=== PATIENT | female | born 1980 | race African-American/Black ===

== ENCOUNTER 2017-02-17 20:10 | Emergency (ER) | payer MEDICARE, MEDICAID ==
[2017-02-17] MEDS ORDERED: CLINDAMYCIN PHOSPHATE INJ 300 MG/2 ML SDV IM ONE (22:44)
[2017-02-17] MEDS ORDERED: HYDROCODONE/ACETAMINOPHEN 5-325 MG TABLET PO ONE (22:45)
[2017-02-17] MEDS ORDERED: DEXAMETHASONE SOD PHOS INJ 10 MG/1 ML VIAL IV ONE (22:45)
--- NOTE | 2017-02-17 23:26 | ER Document Report ---
ED General - General Chief Complaint: Facial Swelling Stated Complaint: LEFT SIDE OF FACE SWOLLEN Time Seen by Provider: 02/17/17 22:17 Mode of Arrival: Ambulatory Information source: Patient, Relative Notes: Patient is a 36-year-old morbidly obese black female comes emergency room with a 3 day onset of left facial swelling. Patient states she has a history of bad teeth and this is developed over the past 48 hours to wear the left side of her face is swollen and tender. Patient denies any difficulty in swallowing and or breathing. She is achy on her body. TRAVEL OUTSIDE OF THE [place] IN LAST 30 DAYS: No - Related Data Allergies/Adverse Reactions: No Known Allergies Allergy (Unverified 08/26/13 19:22) Past Medical History - Social History Family History: Reviewed & Not Pertinent Patient has suicidal ideation: No Patient has homicidal ideation: No - Past Medical History Cardiac Medical History: Reports: Hx DVT, Hx Hypertension, Hx Pulmonary Embolism Neurological Medical History: Reports: Hx Seizures Renal/ Medical History: Denies: Hx Peritoneal Dialysis Past Surgical History: Reports: Hx Section - x2, Hx Orthopedic Surgery - left wrist and bilateral hips, Hx Tubal Ligation - Immunizations Hx Diphtheria, Pertussis, Tetanus Vaccination: Yes Physical Exam - Vital signs Vitals: Temp Pulse Resp BP Pulse Ox 97.5 F 86 20 139/86 H 95 02/17/17 20:28 02/17/17 20:28 02/17/17 20:28 02/17/17 20:28 02/17/17 20:28 Course - Vital Signs Vital signs: Temp Pulse Resp BP Pulse Ox 97.5 F 86 20 139/86 H 95 02/17/17 20:28 02/17/17 20:28 02/17/17 20:28 02/17/17 20:28 02/17/17 20:28 Discharge - Discharge Clinical Impression: Dental abscess Condition: Stable Disposition: HOME, SELF-CARE Instructions: Abscess ([facility]), Oral Narcotic Medication ([facility]) Additional Instructions: Home and rest. I have written you for an antibiotic please take it until it is gone. Also written for some pain medication again take until as you needed. May also add ibuprofen 800 mg 3 times a day with food. Keep your appointment with your dentist as you have indicated to me for next week. Should you have any increase in pain swelling discomfort increase headache fever return to ER once for a reevaluation. Prescriptions: Clindamycin HCl [Cleocin HCl] 300 mg PO QID #40 capsule Hydrocodone/Acetaminophen [[place] 7.5-325 mg Tablet] 1 tab PO QID PRN #15 tablet PRN Reason: For Pain Forms: Elevated Blood Pressure
[2017-02-17 23:52] VITALS: BP 146/75
== END 2017-02-17 23:45 | disposition home or self-care (01) ==
LOC: ER 20:10
DX: K04.7 Periapical abscess without sinus (principal); E66.01 Morbid (severe) obesity due to excess calories; I10 Essential (primary) hypertension; Z86.718 Personal history of other venous thrombosis and embolism; Z86.711 Personal history of pulmonary embolism; Z98.51 Tubal ligation status
CPT/HCPCS: 99283; 96372; 96374; J1100; A9270

== ENCOUNTER 2017-08-10 20:50 | Emergency (ER) | payer MEDICARE, MEDICAID ==
[2017-08-10 21:01] LABS: ABSOLUTE EOSINOPHILS # (AUTO) 0.3 10^3/uL (0.0-0.6); ABSOLUTE LYMPHOCYTES (AUTO) 1.9 10^3/uL (0.5-4.7); ABSOLUTE MONOCYTES (AUTO) 0.5 10^3/uL (0.1-1.4); ABSOLUTE NEUT (AUTO) 7.6 10^3/uL (1.7-8.2); BASOPHILS % (AUTO) 0.4 % (0-2); EOSINOPHILS % (AUTO) 2.7 % (0-6); HEMATOCRIT 38.1 % (36.0-47.0); HEMOGLOBIN 12.2 g/dL (12.0-15.5); LYMPHOCYTES % (AUTO) 18.2 % (13-45); MEAN CORPUSCULAR HEMOGLOBIN 22.8 pg (27.0-33.4); MEAN CORPUSCULAR HGB CONC 31.9 g/dL (32.0-36.0); MEAN CORPUSCULAR VOLUME 72 fl (80-97); MONOCYTES % (AUTO) 5.2 % (3-13); PLATELET COUNT 417 10^3/uL (150-450); RED BLOOD COUNT 5.33 10^6/uL (3.72-5.28); RED CELL DISTRIBUTION WIDTH 20.5 % (11.5-14.0); SEGMENTED NEUTROPHILS % (AUTO) 73.5 % (42-78); TOTAL CELLS COUNTED % (AUTO) 100 %; WHITE BLOOD COUNT 10.3 10^3/uL (4.0-10.5)
[2017-08-10 21:17] LABS: ALANINE AMINOTRANSFERASE 20 U/L (9-52); ALBUMIN 4.3 g/dL (3.5-5.0); ALKALINE PHOSPHATASE 92 U/L (38-126); ANION GAP 10 (5-19); ASPARTATE AMINO TRANSFERASE 13 U/L (14-36); BILIRUBIN,DIRECT 0.3 mg/dL (0.0-0.4); BILIRUBIN,TOTAL 0.4 mg/dL (0.2-1.3); BLOOD UREA NITROGEN 12 mg/dL (7-20); CALCIUM 9.5 mg/dL (8.4-10.2); CARBON DIOXIDE 29 mmol/L (22-30); CHLORIDE 100 mmol/L (98-107); CREATINE KINASE 77 U/L (30-135); GLUCOSE 146 mg/dL (75-110); SODIUM 139.2 mmol/L (137-145); TOTAL PROTEIN 8.3 g/dL (6.3-8.2)
[2017-08-10] MEDS ORDERED: ONDANSETRON HCL INJ/PF 4 MG/2 ML SDV IV ONE (21:28)
[2017-08-10] MEDS ORDERED: MORPHINE SULFATE 10 MG/ML INJ IV ONE (21:29)
[2017-08-10] MEDS ORDERED: NORMAL SALINE 1000 ML 1,000 ML IV ONE (21:29)
--- NOTE | 2017-08-10 21:31 | ER Document Report ---
ED General - General Chief Complaint: Chest Pain Stated Complaint: CHEST PAIN Time Seen by Provider: 08/10/17 21:17 Notes: Patient is a 37-year-old female with a past medical history of morbid obesity, PE, hypertension, seizure disorder, and chronic pain on Percocet that comes emergency department for chief complaint of "pain under the ribs" that started just before dinner, she states that she felt a burning sensation, she took Pepcid and symptoms improved, she went in to eat at a buffet, she states she ate some, felt worse and vomited, she tried eating more and then vomited again, she states she did this 4 times. She comes by EMS, she was given nitroglycerin SL, aspirin 324 mg. She still reports discomfort and some nausea. She denies fever or chills. She is on Eliquis, she has been on this for 2 years without blood clots. She denies history of AR, does have family history of AR (father). TRAVEL OUTSIDE OF THE [place] IN LAST 30 DAYS: No - Related Data Allergies/Adverse Reactions: No Known Allergies Allergy (Unverified 08/26/13 19:22) Past Medical History - General Information source: Patient - Social History Smoking Status: Never Smoker Frequency of alcohol use: None Drug Abuse: None Lives with: Family Family History: Reviewed & Not Pertinent - Past Medical History Cardiac Medical History: Reports: Hx DVT, Hx Hypertension, Hx Pulmonary Embolism Neurological Medical History: Reports: Hx Seizures Renal/ Medical History: Denies: Hx Peritoneal Dialysis Past Surgical History: Reports: Hx Section - x2, Hx Orthopedic Surgery - left wrist and bilateral hips, Hx Tubal Ligation - Immunizations Hx Diphtheria, Pertussis, Tetanus Vaccination: Yes Review of Systems - Review of Systems Constitutional: No symptoms reported EENT: No symptoms reported Cardiovascular: See HPI Respiratory: No symptoms reported Gastrointestinal: See HPI Genitourinary: No symptoms reported Female Genitourinary: No symptoms reported Musculoskeletal: No symptoms reported Skin: No symptoms reported Hematologic/Lymphatic: No symptoms reported Neurological/Psychological: No symptoms reported Physical Exam - Vital signs Vitals: Resp 11 L 08/10/17 21:10 - General General appearance: Appears well In distress: None - HEENT Head: Normocephalic, Atraumatic Eyes: Normal Eyelashes: Normal Pupils: PERRL Mucous membranes: Dry Pharynx: Normal Neck: Normal. No: Anterior cervical chain, Posterior cervical chain - Respiratory Respiratory status: No respiratory distress. No: Respiratory distress, Labored , Tachypnea Chest status: Nontender Breath sounds: Normal. No: Decreased air movement, Wheezing - Cardiovascular Rhythm: Regular. No: Tachycardia Heart sounds: Normal auscultation, S1 appreciated, S2 appreciated - Abdominal Inspection: Normal Tenderness: Tender - There is mild upper abdominal tenderness generally, nonspecific, no guarding, no lower abdominal tenderness - Back Back: Normal, Nontender. No: Tender - Extremities General upper extremity: Normal inspection, Nontender, Normal ROM, Normal strength General lower extremity: Other - Some chronic swelling with minimal pitting noted, no erythema, normal distal pulses and sensation, unremarkable otherwise - Neurological Neuro grossly intact: Yes Cognition: Normal Orientation: AAOx4 [place] Coma Scale Eye Opening: Spontaneous [place] Coma Scale Verbal: Oriented [place] Coma Scale Motor: Obeys Commands [place] Coma Scale Total: 15 Speech: Normal Cranial nerves: Normal Cerebellar coordination: Normal Motor strength normal: LUE, RUE, LLE, RLE Additional motor exam normals: Equal medical assembler Sensory: Normal - Skin Skin Temperature: Warm Skin Moisture: Dry Skin Color: Normal Course - Re-evaluation Re-evalutation: Patient does have some epigastric pain on examination, reporting burning in her upper abdomen and vomiting. Initial tachycardia resolved with IV fluids, no shortness of breath, no suspicion of pulmonary embolism. Patient is on Eliquis. CBC unremarkable, chemistry unremarkable including LFTs, bilirubin, lipase unremarkable. Ultrasound performed, shows questionable minimal sludge, incidental finding of abnormality on the kidney which needs further evaluation for potential mass. EKG sinus tachycardia with no T-wave inversions or ST segment changes in consecutive leads. Chest x-ray is unremarkable. Troponin negative, cycled again and was negative. Patient remained asymptomatic after medications, tolerating fluids and pills by mouth without any difficulty, she denies any repeat symptoms. Patient states she has had peptic ulcers in the past, had endoscopy and colonoscopy years ago. Appears to be gastrointestinal in source, negative workup otherwise. Discussed treatment, follow-up, discussed close follow-up for evaluation of abnormality on right kidney, discussed return precautions in detail. Patient and significant other state understanding and agreement. - Vital Signs Vital signs: Temp Pulse Resp BP Pulse Ox 20 107/82 97 08/11/17 02:01 08/11/17 02:01 08/11/17 02:01 - Laboratory Result Diagrams: 08/10/17 20:34 08/10/17 20:34 Laboratory results interpreted by me: 08/10/17 08/10/17 20:34 20:34 RBC 5.33 H MCV 72 L MCH 22.8 L MCHC 31.9 L RDW 20.5 H Glucose 146 H AST 13 L Total Protein 8.3 H Discharge - Discharge Clinical Impression: Epigastric pain Chest pain Qualifiers: Chest pain type: unspecified Qualified Code(s): R07.9 - Chest pain, unspecified Vomiting Qualifiers: Vomiting type: unspecified Vomiting Intractability: non-intractable Nausea presence: with nausea Qualified Code(s): R11.2 - Nausea with vomiting, unspecified Condition: Stable Disposition: HOME, SELF-CARE Additional Instructions: The evaluation of your gallbladder does not show any concerning abnormalities, your heart workup at this time is normal, your workup and symptoms are most suggestive of a gastrointestinal source. I suspect he had esophagitis/ gastritis. Take the Nexium and Carafate as prescribed, follow-up with your primary care for additional evaluation and management of this. Your ultrasound also shows an incidental finding on your right kidney which needs to be evaluated with either CAT scan or MRI by your provider. Do not delay because this could end up being cancer that would need to be addressed. Return if you worsen including severe pain, returned vomiting, vomiting blood, black stools, or any other concerning or worsening symptoms. Prescriptions: Esomeprazole Mag Trihydrate [Nexium] 40 mg PO DAILY #30 capsule. Sucralfate [Carafate 1 gm Tablet] 1 gm PO QID #40 tablet Forms: Treatment of Relative/Child Referrals: YESSENIA DILLON FNP [Primary Care Provider] - Follow up as needed
[2017-08-10 21:37] LABS: CREATINE KINASE MB < 0.22 ng/mL (<4.55); TROPONIN I < 0.012 ng/mL
[2017-08-10 21:38] LABS: INTERNATIONAL RATION (INR) 1.07; PROTHROMBIN TIME 14.7 SEC (11.4-15.4)
--- NOTE | 2017-08-10 22:39 | RADIOLOGY REPORT (SQ) ---
EXAM DESCRIPTION: CHEST SINGLE VIEW COMPLETED DATE/TIME: 08/10/2017 9:18 pm REASON FOR STUDY: chest pain COMPARISON: 09/09/2014 EXAM PARAMETERS: NUMBER OF VIEWS: One view. TECHNIQUE: Single frontal radiographic view of the chest acquired. RADIATION DOSE: NA LIMITATIONS: None. FINDINGS: LUNGS AND PLEURA: No opacities, masses or pneumothorax. No pleural effusion. MEDIASTINUM AND HILAR STRUCTURES: No masses. Contour normal. HEART AND VASCULAR STRUCTURES: Heart normal in size. Normal vasculature. BONES: No acute findings. HARDWARE: None in the chest. OTHER: No other significant finding. IMPRESSION: NO ACUTE RADIOGRAPHIC FINDING IN THE CHEST. TECHNICAL DOCUMENTATION: JOB ID: [id number] [employer]- All Rights Reserved Reading location - IP/workstation name: [email or web address]
--- NOTE | 2017-08-11 02:03 | RADIOLOGY REPORT (SQ) ---
EXAM DESCRIPTION: U/S ABDOMEN LIMITED W/O DOP CLINICAL HISTORY: 37 years, Female, RUQ and epigastric pain, vomiting COMPARISON: None. TECHNIQUE: Transabdominal LIMITATIONS: None. FINDINGS: Moderate hepatic steatosis with nonspecific diffuse heterogeneity. 10.5 cm right kidney contains a 1.1 cm region of increased echogenicity involving the inferior pole and may indicate a renal angiomyolipoma or artifact. Possible gallbladder sludge. Negative sonographic Martinez's test. No intra or extrahepatic ductal dilation. Common bile duct diameter 0.3 cm. Partially imaged pancreas, aorta appear otherwise unremarkable. No ascites. 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 Nonspecific heterogeneity of the liver. Cannot exclude other neoplastic process. Further evaluation with dynamic contrast CT or MRI of the abdomen recommended.
[2017-08-11] MEDS ORDERED: SUCRALFATE 1 GM TABLET PO ONE (02:13)
[2017-08-11 02:15] VITALS: BP 107/82
--- NOTE | 2017-08-11 07:45 | EKG REPORT ---
SEVERITY:- BORDERLINE ECG - SINUS TACHYCARDIA PROBABLE LEFT ATRIAL ABNORMALITY BORDERLINE PROLONGED QT INTERVAL : Confirmed by: Daniel Johnston MD 11-Aug-2017 07:43:56
== END 2017-08-11 02:45 | disposition home or self-care (01) ==
LOC: ER 20:50
DX: R10.13 Epigastric pain (principal); R07.9 Chest pain, unspecified; R11.2 Nausea with vomiting, unspecified; R00.0 Tachycardia, unspecified; G89.29 Other chronic pain; Z79.899 Other long term (current) drug therapy; I10 Essential (primary) hypertension
CPT/HCPCS: 93005; 99285; 96361; 96374; 96375; 36415; 82553; 82550; 83690; 85025; 85610; 80053; 84484; 71045; 76705; 93010; J2270; A9270; J2405; J7030

== ENCOUNTER 2018-06-12 09:30 | Emergency (ER) | payer OTHER, MEDICARE, MEDICAID ==
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
--- NOTE | 2018-06-12 11:46 | RADIOLOGY REPORT (SQ) ---
EXAM DESCRIPTION: TIBIA FIBULA LEFT COMPLETED DATE/TIME: 06/12/2018 11:16 am REASON FOR STUDY: pain, swelling COMPARISON: None. NUMBER OF VIEWS: Two views. TECHNIQUE: Two radiographic images acquired of the left tibia and fibula to include the knee and ank le in at least one projection. LIMITATIONS: None. FINDINGS: Old fractures or congenital deformities of the distal tibia and fibular diaphysis. No acu te fracture. Diffuse dystrophic calcifications in the soft tissues. Advanced osteoarthritis in the knee. IMPRESSION: No acute findings. Dystrophic calcifications nonspecific but can be associated with moisés matomyositis. TECHNICAL DOCUMENTATION: JOB ID: [id number] [email or web address]- All Rights Reserved Reading location - IP/workstation name: [email or web address]
[2018-06-12 12:52] VITALS: BP 116/80
== END 2018-06-12 12:52 | disposition home or self-care (01) ==
LOC: ER 09:30
DX: S80.12XA Contusion of left lower leg, initial encounter (principal); M79.662 Pain in left lower leg; V59.9XXA Occupant (driver) (passenger) of pick-up truck or van injured in unspecified traffic accident, initial encounter; I10 Essential (primary) hypertension; R56.9 Unspecified convulsions; D68.61 Antiphospholipid syndrome; Z79.01 Long term (current) use of anticoagulants; Z79.899 Other long term (current) drug therapy; Z86.711 Personal history of pulmonary embolism; Z86.718 Personal history of other venous thrombosis and embolism
CPT/HCPCS: 99283

== ENCOUNTER 2018-11-12 20:53 | Emergency (ER) | payer OTHER, MEDICARE, MEDICAID ==
[2018-11-12] MEDS ORDERED: HYDROCODONE/ACETAMINOPHEN 5-325 MG TABLET PO ONE (22:21)
[2018-11-12] MEDS ORDERED: IBUPROFEN 800 MG TABLET PO ONE (22:21)
--- NOTE | 2018-11-12 23:47 | RADIOLOGY REPORT (SQ) ---
EXAM DESCRIPTION: XR LUMBAR SPINE ANTEROPOSTERIOR, LATERAL, AND OBLIQUES COMPLETED DATE/TME: 11/12/2018 22:22 CLINICAL HISTORY: 38 years, Female, INJURY COMPARISON: None. NUMBER OF VIEWS: 5 TECHNIQUE: 5 view lumbar spine LIMITATIONS: None. FINDINGS: Osteopenia. Mild levoconvex scoliosis of the lumbar spine. Inferior vena cava filter noted. Surgical clips in the pelvis. Post surgical change left hip. Equivocal retrolisthesis of L3 with respect to L4 and L4 with respect to L5 likely secondary to advanced facet arthropathy at these levels. Height and alignment is otherwise preserved. Diffuse disc space narrowing, facet arthropathy, osteophytic spurring and endplate degenerative change throughout the lumbar spine. No discrete pars defects.. IMPRESSION: Osteopenia with diffuse, extensive degenerative changes of the lumbar spine. copyright 2010 [employer]- All Rights Reserved
--- NOTE | 2018-11-12 23:48 | RADIOLOGY REPORT (SQ) ---
EXAM DESCRIPTION: XR CERVICAL SPINE 4-5 VIEWS COMPLETED DATE/TME: 11/12/2018 22:22 CLINICAL HISTORY: 38 years, Female, INJURY COMPARISON: None. NUMBER OF VIEWS: 7 TECHNIQUE: 7 views cervical spine LIMITATIONS: None. FINDINGS: Osteopenia. Slight reversal of the normal cervical lordosis likely reflecting muscle spasm/strain. Vertebral body height and alignment is otherwise preserved. Disc space narrowing with endplate degenerative change and osteophytic spurring C4-5, C5-6. Prevertebral soft tissues are normal. IMPRESSION: Slight reversal of the normal cervical lordosis which may reflect muscle spasm/strain. Degenerative change as above. Osteopenia copyright 2010 [employer]- All Rights Reserved
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
[2018-11-13 02:17] VITALS: BP 165/78
== END 2018-11-13 02:14 | disposition home or self-care (01) ==
LOC: ER 20:53
DX: S16.1XXA Strain of muscle, fascia and tendon at neck level, initial encounter (principal); M54.2 Cervicalgia; M54.5 Low back pain; V49.40XA Driver injured in collision with unspecified motor vehicles in traffic accident, initial encounter; M47.9 Spondylosis, unspecified; I10 Essential (primary) hypertension; E66.01 Morbid (severe) obesity due to excess calories; Z79.02 Long term (current) use of antithrombotics/antiplatelets; Z86.718 Personal history of other venous thrombosis and embolism; Z86.711 Personal history of pulmonary embolism
CPT/HCPCS: 72050; 72110; 99283

== ENCOUNTER 2018-12-27 19:43 | Emergency (ER) | payer MEDICARE, MEDICAID ==
[2018-12-27] MEDS ORDERED: NORMAL SALINE 1000 ML 1,000 ML IV ONE (20:06)
[2018-12-27] MEDS ORDERED: ONDANSETRON HCL INJ/PF 4 MG/2 ML SDV IV ONE (20:06)
[2018-12-27] MEDS ORDERED: OXYCODONE-ACETAMINOPHEN 5-325 MG TABLET PO ONE (20:06)
--- NOTE | 2018-12-27 20:08 | ER Document Report ---
ED Medical Screen (RME) - General Chief Complaint: Flank Pain Stated Complaint: FLANK PAIN,VOMITTING,NAUSEA Time Seen by Provider: 12/27/18 20:00 Primary Care Provider: YESSENIA DILLON FNP [Primary Care Provider] - Follow up as needed Notes: Patient is a 38-year-old female with a history of hypertension, seizures, APS (clotting disorder), lymphedema who presents to the emergency department today with a chief complaint of possible UTI. Patient states since Tuesday she has had a left flank pain with the intermittent urinary frequency and urinary urgency. Patient reports that at times she will go to the restroom and urinate a large amount and then sometimes feel like she cannot empty her bladder. Patient reports that her urine is cloudy and has a spouse smelling odor. Patient reports nausea and one episode of vomiting today. Patient denies diarrhea or fever. Patient reports a history of kidney infections and states she feels like this is the same. TRAVEL OUTSIDE OF THE [place] IN LAST 30 DAYS: No - Related Data Allergies/Adverse Reactions: No Known Allergies Allergy (Verified 12/27/18 19:46) Past Medical History - Social History Chew tobacco use (# tins/day): No Drug Abuse: None - Past Medical History Cardiac Medical History: Reports: Hx DVT, Hx Hypertension, Hx Pulmonary Embolism Neurological Medical History: Reports: Hx Seizures Renal/ Medical History: Denies: Hx Peritoneal Dialysis Past Surgical History: Reports: Hx Section - x2, Hx Orthopedic Surgery - left wrist and bilateral hips, Hx Tubal Ligation - Immunizations Hx Diphtheria, Pertussis, Tetanus Vaccination: Yes Physical Exam - Vital signs Vitals: Temp Pulse Resp BP Pulse Ox 98.1 F 81 20 116/81 97 12/27/18 19:49 12/27/18 19:49 12/27/18 19:49 12/27/18 19:49 12/27/18 19:49 - Abdominal Inspection: Morbidly Obese Distension: No distension Bowel sounds: Normal - Back Back: Normal, CVA tenderness - Left Course - Re-evaluation Re-evalutation: 12/27/18 20:08 I have greeted and performed a rapid initial assessment of this patient. A comprehensive ED assessment and evaluation of the patient, analysis of test results and completion of the medical decision making process will be conducted by additional ED providers. - Vital Signs Vital signs: Temp Pulse Resp BP Pulse Ox 98.1 F 81 20 116/81 97 12/27/18 19:49 12/27/18 19:49 12/27/18 19:49 12/27/18 19:49 12/27/18 19:49 Doctor's Discharge - Discharge Referrals: YESSENIA DILLON FNP [Primary Care Provider] - Follow up as needed
[2018-12-27 21:18] LABS: HEMATOCRIT 29.5 % (36.0-47.0); HEMOGLOBIN 9.1 g/dL (12.0-15.5); MEAN CORPUSCULAR HEMOGLOBIN 18.6 pg (27.0-33.4); MEAN CORPUSCULAR HGB CONC 30.8 g/dL (32.0-36.0); PLATELET COUNT 423 10^3/uL (150-450); RED BLOOD COUNT 4.88 10^6/uL (3.72-5.28); RED CELL DISTRIBUTION WIDTH 21.5 % (11.5-14.0); WHITE BLOOD COUNT 10.6 10^3/uL (4.0-10.5)
[2018-12-27 21:25] LABS: APPEARANCE,URINE CLOUDY; BILIRUBIN,URINE NEGATIVE (NEGATIVE); GLUCOSE, URINE NEGATIVE (NEGATIVE); KETONES,URINE NEGATIVE (NEGATIVE); LEUKOCYTE ESTERASE,URINE MODERATE (NEGATIVE); NITRITE,URINE POSITIVE (NEGATIVE); PROTEIN,URINE 30 mg/dL (NEGATIVE); URINE SPECIFIC GRAVITY 1.019
[2018-12-27 21:26] LABS: COLOR,URINE YELLOW
[2018-12-27 21:33] LABS: ALBUMIN 3.9 g/dL (3.5-5.0); ALKALINE PHOSPHATASE 85 U/L (38-126); ANION GAP 8 (5-19); ASPARTATE AMINO TRANSFERASE 14 U/L (14-36); BILIRUBIN,DIRECT 0.2 mg/dL (0.0-0.4); BILIRUBIN,TOTAL 0.4 mg/dL (0.2-1.3); BLOOD UREA NITROGEN 8 mg/dL (7-20); CALCIUM 9.3 mg/dL (8.4-10.2); CARBON DIOXIDE 31 mmol/L (22-30); CHLORIDE 100 mmol/L (98-107); GLUCOSE 90 mg/dL (75-110); POTASSIUM 4.1 mmol/L (3.6-5.0); TOTAL PROTEIN 7.5 g/dL (6.3-8.2)
[2018-12-27 21:45] LABS: MEAN CORPUSCULAR VOLUME 61 fl (80-97)
[2018-12-27 21:47] LABS: ABSOLUTE LYMPHOCYTES# (MANUAL) 1.4 10^3/uL (0.5-4.7); ABSOLUTE MONOCYTES # (MANUAL) 0.7 10^3/uL (0.1-1.4); BASOPHILS % (MANUAL) 1 % (0-2); EOSINOPHILS % (MANUAL) 3 % (0-6); LYMPHOCYTES % (MANUAL) 13 % (13-45); MONOCYTES % (MANUAL) 7 % (3-13); SEGMENTED NEUTROPHILS % (MAN) 76 % (42-78); TOTAL CELLS COUNTED 100
[2018-12-27 21:48] LABS: ANISOCYTOSIS 3+; HYPOCHROMASIA 3+; POIKILOCYTOSIS 1+; POLYCHROMASIA SLIGHT
[2018-12-27 21:49] LABS: OVALOCYTES SLIGHT; PLATELET COMMENT ADEQUATE; TARGET CELLS 1+
--- NOTE | 2018-12-28 02:14 | ER Document Report ---
ED General - General Chief Complaint: Flank Pain Stated Complaint: FLANK PAIN,VOMITTING,NAUSEA Time Seen by Provider: 12/27/18 20:00 Primary Care Provider: YESSENIA DILLON FNP [NO LOCAL MD] - Follow up as needed TRAVEL OUTSIDE OF THE [place] IN LAST 30 DAYS: No - HPI Notes: 38-year-old female presents with a day and a half a gradual onset left-sided flank and back pain, discolored urine and foul-smelling urine. History of prior kidney infections but nothing recently. No fever chills or sweats. Nausea vomiting once yesterday but not today. Moderate intensity, nonradiating, gradual onset. No other modifying factors, no other associated symptoms, no other provocative or palliative factors. - Related Data Allergies/Adverse Reactions: No Known Allergies Allergy (Verified 12/27/18 19:46) Past Medical History - Social History Smoking Status: Never Smoker Chew tobacco use (# tins/day): No Drug Abuse: None Family History: Reviewed & Not Pertinent Patient has suicidal ideation: No Patient has homicidal ideation: No - Medical History Notes: Includes prior pyelonephritis. Medical history is reviewed in the EMR, includes antiphospholipid syndrome. Patient is not on warfarin anymore she is on Eliquis. - Past Medical History Cardiac Medical History: Reports: Hx DVT, Hx Hypertension, Hx Pulmonary Embolism Neurological Medical History: Reports: Hx Seizures Renal/ Medical History: Denies: Hx Peritoneal Dialysis Past Surgical History: Reports: Hx Section - x2, Hx Orthopedic Surgery - left wrist and bilateral hips, Hx Tubal Ligation - Immunizations Hx Diphtheria, Pertussis, Tetanus Vaccination: Yes Review of Systems - Review of Systems Notes: Review of systems as in the history of present illness, otherwise negative x 10 systems. Physical Exam - Vital signs Vitals: Temp Pulse Resp BP Pulse Ox 98.1 F 81 20 116/81 97 12/27/18 19:49 12/27/18 19:49 12/27/18 19:49 12/27/18 19:49 12/27/18 19:49 - Notes Notes: General: Well developed . Orbitally obese HEENT: Normocephalic, atraumatic. Pupils equal round reactive to light. No JVD. Chest: No trauma. Respiratory: Good air exchange, normal excursion. Cardiac: Regular rhythm. No murmurs or gallops. Abdomen: Soft, benign. Nondistended. Nontender. Back: No asymmetry or gross abnormality. Mild left CVAT Motor: Grossly normal power and tone. Neurologic: Alert, nonfocal. Cranial nerves II-12 are intact. Sensation intact. Vascular: Well perfused. Normal peripheral pulses. Skin: No petechiae or purpura. Course - Re-evaluation Re-evalutation: 12/28/18 02:15 38-year-old female with the after mentioned symptoms. Clinically suspicion for pyelonephritis, doubt renal colic. Patient was evaluated by the [facility] provider prior to my evaluation. Studies / interventions have been ordered by this provider and may still be pending. Labs reviewed, CBC unremarkable, chemistry unremarkable. Urine consistent with infection. Patient is nontoxic in appearance. Feels much better on reevaluation. She is given a dose of IV ceftriaxone, will be discharged home on Ceftin, outpatient follow-up. - Vital Signs Vital signs: Temp Pulse Resp BP Pulse Ox 97.9 F 68 16 118/44 L 99 12/28/18 02:11 12/28/18 02:11 12/28/18 02:11 12/28/18 02:11 12/28/18 02:11 - Laboratory Result Diagrams: 12/27/18 21:00 12/27/18 21:00 Laboratory results interpreted by me: 12/27/18 12/27/18 12/27/18 21:00 21:00 21:00 WBC 10.6 H Hgb 9.1 L Hct 29.5 L MCV 61 L MCH 18.6 L MCHC 30.8 L RDW 21.5 H Carbon Dioxide 31 H Urine Protein 30 H Urine Blood MODERATE H Urine Nitrite POSITIVE H Urine Urobilinogen 2.0 H Ur Leukocyte Esterase MODERATE H Discharge - Discharge Clinical Impression: Pyelonephritis Condition: Stable Disposition: HOME, SELF-CARE Instructions: Pyelonephritis ([facility]) Prescriptions: Cefuroxime Axetil [Ceftin 500 mg Tablet] 500 mg PO Q12 7 Days #14 tablet Ondansetron [Zofran Odt 4 mg Tablet] 1 - 2 tab PO Q4H PRN #15 tab.rapdis PRN Reason: For Nausea/Vomiting Referrals: YESSENIA DILLON FNP [NO LOCAL MD] - Follow up as needed
[2018-12-28] MEDS ORDERED: CEFTRIAXONE 1 GM/D5W RTU 1 GM/50 ML RTUPB IV ONE (02:30)
[2018-12-28 03:06] VITALS: BP 121/65
[2018-12-28 12:47] LABS: PATH REVIEW PATHOLOGIST REVIEWED
== END 2018-12-28 03:00 | disposition home or self-care (01) ==
LOC: ER 19:43
DX: N12 Tubulo-interstitial nephritis, not specified as acute or chronic (principal); R10.9 Unspecified abdominal pain; R11.2 Nausea with vomiting, unspecified; M54.9 Dorsalgia, unspecified; I10 Essential (primary) hypertension; E66.01 Morbid (severe) obesity due to excess calories; Z86.718 Personal history of other venous thrombosis and embolism; Z86.711 Personal history of pulmonary embolism; Z98.51 Tubal ligation status
CPT/HCPCS: 99284; 96361; 96375; 96365; 36415; 85025; 81025; 80053; 81001; A9270; J2405; J7030; J0696

== ENCOUNTER 2019-01-07 21:32 | Emergency (ER) | payer MEDICARE, MEDICAID ==
[2019-01-07] MEDS ORDERED: ACETAMINOPHEN 325 MG TABLET PO ONE (23:12)
--- NOTE | 2019-01-07 23:15 | ER Document Report ---
ED General - General Chief Complaint: Flank Pain Stated Complaint: LEFT SIDED FLANK PAIN Time Seen by Provider: 01/07/19 23:12 TRAVEL OUTSIDE OF THE [place] IN LAST 30 DAYS: No - HPI Notes: Patient is a 38-year-old female that presents to the emergency department for chief complaint of left flank pain. Patient reports pain in her left lower flank and difficulty urinating that began yesterday. She states she had the same symptoms a week ago but completed a course of Ceftin for pyelonephritis. She states she did had complete resolution of her symptoms prior to them reoccurring. The symptoms today feel identical to her previous presentation but slightly less severe. She states her pain was constant when she was on the antibiotics and is currently more throbbing and intermittent. She states it is worse when she is urinating. She reports decreased appetite but denies nausea vomiting fevers and chills. She has not taken any oral medication for pain. Past Medical History: Hypertension, clotting disorder, seizures, lymphedema Past Surgical History: Reviewed in chart Social History: Denies drug alcohol and tobacco use Family History: Reviewed and noncontributory for presenting illness Allergies: Reviewed, see documented allergy list. REVIEW OF SYSTEMS: CONSTITUTIONAL : No fever No chills No diaphoresis No recent illness EENT: No vision changes No congestion No sore throat CARDIOVASCULAR: No chest pain No palpitations RESPIRATORY: No shortness of breath No cough No difficulty breathing GASTROINTESTINAL: No abdominal pain Left flank pain No nausea No vomiting No diarrhea GENITOURINARY: dysuria No hematuria No difficulty urinating MUSCULOSKELETAL: No back pain No leg pain No arm pain SKIN: No rashes No lesions LYMPHATIC: No swollen, enlarged glands. NEUROLOGICAL: No lightheadedness No headache No weakness No paresthesias PSYCHIATRIC: No anxiety No depression PHYSICAL EXAMINATION: Vital signs reviewed, nursing noted reviewed. GENERAL: Well-appearing, obese and in no acute distress. HEAD: Atraumatic, normocephalic. EYES: Eyes appear normal, extraocular movements intact, sclera anicteric, conjunctiva are normal. ENT: nares patent, oropharynx clear without exudates. Moist mucous membranes. NECK: Normal range of motion, supple without lymphadenopathy LUNGS: Breath sounds clear to auscultation bilaterally and equal. No wheezes rales or rhonchi. HEART: Regular rate and rhythm without murmurs ABDOMEN: No CVA tenderness bilaterally, soft, nontender, normoactive bowel sounds. No rebound, guarding, or rigidity. No masses appreciated. EXTREMITIES: Nontender, good range of motion, +2 symmetric bilateral lower extremity edema NEUROLOGICAL: No focal neurological deficits. Moves all extremities spontaneou sly Motor and sensory grossly intact on exam. PSYCH: Normal mood, normal affect. SKIN: Warm, Dry, normal turgor, no rashes or lesions noted on exposed skin - Related Data Allergies/Adverse Reactions: No Known Allergies Allergy (Verified 12/27/18 19:46) Past Medical History - Social History Smoking Status: Unknown if Ever Smoked Family History: Reviewed & Not Pertinent Patient has suicidal ideation: No Patient has homicidal ideation: No - Past Medical History Cardiac Medical History: Reports: Hx DVT, Hx Hypertension, Hx Pulmonary Embolism Neurological Medical History: Reports: Hx Seizures Renal/ Medical History: Denies: Hx Peritoneal Dialysis Past Surgical History: Reports: Hx Section - x2, Hx Orthopedic Surgery - left wrist and bilateral hips, Hx Tubal Ligation - Immunizations Hx Diphtheria, Pertussis, Tetanus Vaccination: Yes Physical Exam - Vital signs Vitals: Temp Pulse Resp BP Pulse Ox 98 F 71 16 117/77 96 01/07/19 21:50 01/07/19 21:50 01/07/19 21:50 01/07/19 21:50 01/07/19 21:50 Course - Re-evaluation Re-evalutation: 01/07/19 23:14 Vitals reviewed. Nursing notes reviewed. Patient is well-appearing and in no acute distress. She has no abdominal tenderness or flank pain. She will be given Tylenol for pain. Chart review does show nitrate positive urinary tract infection that was treated with Ceftin. Patient had complete resolution of her symptoms for 1 to 2 days prior to them reoccurring. I suspect incomplete treatment of her pyelonephritis. She is not septic or toxic appearing to necessitate further blood work today. Patient will have repeat UA and urine culture performed. 01/07/19 23:53 Patient's urinalysis still appears infected but is improved from prior. I suspect incomplete treatment of pyelonephritis. Patient will be started on Bactrim. She also has yeast in her UA and will be given a dose of Diflucan and prescribed a second dose to take in a week if having yeast symptoms. Patient encouraged to follow with primary care. She is stable at discharge. Laboratory 01/07/19 23:20 Urine Color DARK YELLOW Urine Appearance CLOUDY Urine pH 5.0 Ur Specific [place] 1.017 Urine Protein 30 H Urine Glucose (UA) NEGATIVE Urine Ketones NEGATIVE Urine Blood LARGE H Urine Nitrite NEGATIVE Urine Bilirubin NEGATIVE Urine Urobilinogen NEGATIVE Ur Leukocyte Esterase LARGE H Urine WBC (Auto) 22 Urine RBC (Auto) 17 Urine Bacteria (Auto) 1+ Squamous Epi Cells Auto 6 Amorphous Sediment Auto TRACE Urine Mucus (Auto) RARE Urine Yeast (Budding) PRESENT Urine Ascorbic Acid NEGATIVE - Vital Signs Vital signs: Temp Pulse Resp BP Pulse Ox 98 F 71 16 117/77 96 01/07/19 21:50 01/07/19 21:50 01/07/19 21:50 01/07/19 21:50 01/07/19 21:50 - Laboratory Laboratory results interpreted by me: 01/07/19 23:20 Urine Protein 30 H Urine Blood LARGE H Ur Leukocyte Esterase LARGE H Discharge - Discharge Clinical Impression: Yeast vaginitis UTI (urinary tract infection) Qualifiers: Urinary tract infection type: site unspecified Hematuria presence: with hematuria Qualified Code(s): N39.0 - Urinary tract infection, site not specified; R31.9 - Hematuria, unspecified Condition: Stable Disposition: HOME, SELF-CARE Instructions: Trimethoprim-Sulfa ([facility]), Urinary Tract Infection ([facility]), Vaginal Yeast Infection ([facility]) Additional Instructions: Please return to the emergency department if you have any worsening, or concern of your symptoms. Please return to the emergency department if you develop chest pain, difficulty breathing, severe abdominal pain, or ongoing vomiting. Please follow-up with your primary care physician in 2-3 days and any other recommended physicians. If prescribed, take all medications as directed. If you have any questions or concerns do not hesitate to return the emergency department for evaluation. If you have vaginal irritation or itching consistent with yeast infection take the dose of Diflucan on 01/14/2019 Prescriptions: Sulfamethoxazole/Trimethoprim [Bactrim Ds Tablet] 1 each PO BID #20 tablet Fluconazole [Diflucan] 150 mg PO ONCE PRN #1 tablet PRN Reason: Referrals: [facility] [Provider Group] - Follow up in 3-5 days
[2019-01-07 23:33] LABS: AMORPHOUS SEDIMENT,URINE TRACE /HPF; APPEARANCE,URINE CLOUDY; BILIRUBIN,URINE NEGATIVE (NEGATIVE); COLOR,URINE DARK YELLOW; GLUCOSE, URINE NEGATIVE (NEGATIVE); KETONES,URINE NEGATIVE (NEGATIVE); LEUKOCYTE ESTERASE,URINE LARGE (NEGATIVE); NITRITE,URINE NEGATIVE (NEGATIVE); PROTEIN,URINE 30 mg/dL (NEGATIVE); URINE SPECIFIC GRAVITY 1.017; UROBILINOGEN,URINE NEGATIVE mg/dL (<2.0)
[2019-01-07] MEDS ORDERED: SULFAMETHOXAZOLE/TRIMETHOPRIM 800-160 MG TABLET PO ONE (23:50)
[2019-01-07] MEDS ORDERED: FLUCONAZOLE 100 MG TABLET PO ONE (23:50)
[2019-01-08 00:03] VITALS: BP 117/59
== END 2019-01-08 00:10 | disposition home or self-care (01) ==
LOC: ER 21:32
DX: N39.0 Urinary tract infection, site not specified (principal); B37.3 Candidiasis of vulva and vagina; R10.9 Unspecified abdominal pain; I10 Essential (primary) hypertension; Z98.51 Tubal ligation status; Z86.718 Personal history of other venous thrombosis and embolism; Z86.711 Personal history of pulmonary embolism
CPT/HCPCS: 87086; 81001; A9270 ×2; 99284

== ENCOUNTER 2019-01-26 01:03 | Emergency (ER) | payer MEDICARE, MEDICAID ==
[2019-01-26 03:02] LABS: HEMATOCRIT 30.9 % (36.0-47.0); HEMOGLOBIN 9.4 g/dL (12.0-15.5); MEAN CORPUSCULAR HEMOGLOBIN 18.7 pg (27.0-33.4); MEAN CORPUSCULAR HGB CONC 30.6 g/dL (32.0-36.0); PLATELET COUNT 275 10^3/uL (150-450); RED BLOOD COUNT 5.06 10^6/uL (3.72-5.28); RED CELL DISTRIBUTION WIDTH 21.3 % (11.5-14.0); WHITE BLOOD COUNT 15.7 10^3/uL (4.0-10.5)
[2019-01-26 03:16] LABS: ALBUMIN 4.6 g/dL (3.5-5.0); ALKALINE PHOSPHATASE 79 U/L (38-126); ANION GAP 12 (5-19); ASPARTATE AMINO TRANSFERASE 17 U/L (14-36); BILIRUBIN,DIRECT 0.1 mg/dL (0.0-0.4); BILIRUBIN,TOTAL 0.4 mg/dL (0.2-1.3); BLOOD UREA NITROGEN 10 mg/dL (7-20); CALCIUM 9.3 mg/dL (8.4-10.2); CARBON DIOXIDE 26 mmol/L (22-30); CHLORIDE 100 mmol/L (98-107); GLUCOSE 112 mg/dL (75-110); TOTAL PROTEIN 8.4 g/dL (6.3-8.2)
[2019-01-26 03:41] LABS: MEAN CORPUSCULAR VOLUME 61 fl (80-97)
--- NOTE | 2019-01-26 03:42 | ER Document Report ---
ED General - General Chief Complaint: Abdominal Pain Stated Complaint: OVARIAN PAIN Time Seen by Provider: 01/26/19 03:41 Notes: Patient is a 38-year-old female with history of ovarian cysts that presents to the emergency department for chief complaint of abdominal pain. Patient states the pain started yesterday evening, and has been persistent and seemingly worsening over time. The pain is located left pelvic region, but does go up to the left flank, and they currently rate the pain as a 7 out of 10, and described as aching, and constant. They have had associated nausea, but no vomiting, patient states she is been having urinary frequency and hesitancy, and a follow odor to her urine, denies any vaginal bleeding or discharge. She denies any any fevers, chills, night sweats. She is not sure if this is related to ovarian cyst, which she is had in the past, previously was on the right side. Denies prior history of kidney stones.. Past Medical History: Ovarian cysts Past Surgical History: Hernia repair Social History: Denies tobacco, alcohol or drug use. Family History: Reviewed and noncontributory for presenting illness Allergies: Reviewed, see documented allergy list. REVIEW OF SYSTEMS: Other than noted above, the 12 point review of systems was reviewed with the patient and were negative, all pertinent findings are included in the HPI. PHYSICAL EXAMINATION: Vital signs reviewed, nursing noted reviewed. GENERAL: Well-appearing, well-nourished and appears uncomfortable HEAD: Atraumatic, normocephalic. EYES: Eyes appear normal, extraocular movements intact, sclera anicteric, conjunctiva are normal. ENT: nares patent, oropharynx clear without exudates. Moist mucous membranes. NECK: Normal range of motion, supple without lymphadenopathy LUNGS: Breath sounds clear to auscultation bilaterally and equal. No wheezes rales or rhonchi. HEART: Regular rate and rhythm without murmurs ABDOMEN: Soft, normal bowel sounds, tenderness with palpation to the left CVA, as well as the left pelvic region, No rebound, guarding, or rigidity. No masses appreciated. EXTREMITIES: Nontender, good range of motion, no pitting or edema. NEUROLOGICAL: No focal neurological deficits. Moves all extremities sponta neously Motor and sensory grossly intact on exam. PSYCH: Normal mood, normal affect. SKIN: Warm, Dry, normal turgor, no rashes or lesions noted on exposed skin TRAVEL OUTSIDE OF THE [place] IN LAST 30 DAYS: No - Related Data Allergies/Adverse Reactions: No Known Allergies Allergy (Verified 01/26/19 02:42) Past Medical History - Social History Smoking Status: Former Smoker Chew tobacco use (# tins/day): No Frequency of alcohol use: Occasional Drug Abuse: None Family History: Reviewed & Not Pertinent Patient has suicidal ideation: No Patient has homicidal ideation: No - Past Medical History Cardiac Medical History: Reports: Hx DVT, Hx Hypertension, Hx Pulmonary Embolism Neurological Medical History: Reports: Hx Seizures Renal/ Medical History: Denies: Hx Peritoneal Dialysis Past Surgical History: Reports: Hx Section - x2, Hx Orthopedic Surgery - left wrist and bilateral hips, Hx Tubal Ligation - Immunizations Hx Diphtheria, Pertussis, Tetanus Vaccination: Yes Physical Exam - Vital signs Vitals: Temp Pulse Resp BP Pulse Ox 97.8 F 106 H 17 122/82 97 01/26/19 01:04 01/26/19 01:04 01/26/19 01:04 01/26/19 01:04 01/26/19 01:04 Course - Re-evaluation Re-evalutation: Patient seen and examined vital signs reviewed. Laboratory data and/or imaging were ordered as appropriate for the patient's presenting symptoms and complaint, with consideration of any critical or life threatening conditions that may be associated with their obtained history and exam as noted above. Patient was treated with IV fluids, Zofran and morphine Results were reviewed when available and demonstrated leukocytosis, UA consistent with urinary tract infection, CT imaging negative for stone, patient was given a dose of IV Rocephin in the ED The patient was re-evaluated and was stable and much improved Evaluation was most consistent with pyelonephritis, will treat with the dose of Rocephin in the ED, and then discharged home on cefdinir for 7 additional days, have her follow-up with her primary care physician. Results were discussed with the patient at this point, after careful considerat ion I feel that that patient can be discharged from the emergency department, the patient was educated treatments and reasons to return to the emergency department based on their presumed diagnosis as noted above, they were advised to followup with a primary care physician in 2-3 days. Patient was agreeable to plan of care. *Note is created using voice recognition software and may contain spelling, syntax or grammatical errors. Laboratory 01/26/19 01/26/19 01/26/19 02:40 02:40 02:40 WBC 15.7 H RBC 5.06 Hgb 9.4 L Hct 30.9 L MCV 61 L MCH 18.7 L MCHC 30.6 L RDW 21.3 H Plt Count 275 Lymph % (Auto) Not Reportable [place] % (Auto) Not Reportable Eos % (Auto) Not Reportable Baso % (Auto) Not Reportable Absolute Neuts (auto) Not Reportable Absolute Lymphs (auto) Not Reportable Absolute Monos (auto) Not Reportable Absolute Eos (auto) Not Reportable Absolute Basos (auto) Not Reportable Total Counted 100 Seg Neutrophils % Not Reportable Seg Neuts % (Manual) 88 H Lymphocytes % (Manual) 6 L Monocytes % (Manual) 3 Eosinophils % (Manual) 2 Basophils % (Manual) 1 Abs Neuts (Manual) 13.8 H Abs Lymphs (Manual) 0.9 Abs Monocytes (Manual) 0.5 Absolute Eos (Manual) 0.3 Abs Basophils (Manual) 0.2 Platelet Comment ADEQUATE Hypochromasia 2+ Anisocytosis 3+ Microcytosis 3+ Target Cells 1+ Ovalocytes 1+ Schistocytes 1+ Sodium 137.5 Potassium 4.0 Chloride 100 Carbon Dioxide 26 Anion Gap 12 BUN 10 Creatinine 1.03 Est GFR ( Amer) > 60 Est GFR (MDRD) Non-Af 59 L Glucose 112 H Calcium 9.3 Total Bilirubin 0.4 Direct Bilirubin 0.1 Neonat Total Bilirubin Not Reportable Neonat Direct Bilirubin Not Reportable Neonat Indirect Bili Not Reportable AST 17 ALT 10 Alkaline Phosphatase 79 Total Protein 8.4 H Albumin 4.6 Lipase 62.1 Urine Color YELLOW Urine Appearance CLOUDY Urine pH 5.0 Ur Specific [place] 1.018 Urine Protein 30 H Urine Glucose (UA) NEGATIVE Urine Ketones NEGATIVE Urine Blood MODERATE H Urine Nitrite NEGATIVE Urine Bilirubin NEGATIVE Urine Urobilinogen NEGATIVE Ur Leukocyte Esterase LARGE H Urine WBC 10-20 Ur Squamous Epith Cells FEW Urine Bacteria 2+ Hyaline Casts 0-1 Urine Mucus 1+ Urine Ascorbic Acid NEGATIVE Urine HCG, Qual NEGATIVE Abdomen/Pelvis CT 01/26/19 03:51 IMPRESSION: No acute findings. No evidence of urolithiasis or hydronephrosis. TECHNICAL DOCUMENTATION: Quality ID # 436: Final reports with documentation of one or more dose reduction techniques (e.g., Automated exposure control, adjustment of the mA and/or kV according to patient size, use of iterative reconstruction technique) copyright 2011 [employer]- All Rights Reserved - Vital Signs Vital signs: Temp Pulse Resp BP Pulse Ox 97.8 F 106 H 17 122/82 97 01/26/19 01:04 01/26/19 01:04 01/26/19 01:04 01/26/19 01:04 01/26/19 01:04 - Laboratory Result Diagrams: 01/26/19 02:40 01/26/19 02:40 Laboratory results interpreted by me: 01/26/19 01/26/19 01/26/19 02:40 02:40 02:40 WBC 15.7 H Hgb 9.4 L Hct 30.9 L MCV 61 L MCH 18.7 L MCHC 30.6 L RDW 21.3 H Seg Neuts % (Manual) 88 H Lymphocytes % (Manual) 6 L Abs Neuts (Manual) 13.8 H Est GFR (MDRD) Non-Af 59 L Glucose 112 H Total Protein 8.4 H Urine Protein 30 H Urine Blood MODERATE H Ur Leukocyte Esterase LARGE H Discharge - Discharge Clinical Impression: Pyelonephritis Condition: Stable Disposition: HOME, SELF-CARE Instructions: Pyelonephritis (OM) Prescriptions: Cefdinir 300 mg PO BID #14 capsule Phenazopyridine HCl [Pyridium 200 mg Tablet] 200 mg PO TID #15 tablet Referrals: RAFA SEPULVEDA MD [ACTIVE STAFF] - Follow up in 3-5 days (or your primary care. )
[2019-01-26 03:46] LABS: ABSOLUTE LYMPHOCYTES# (MANUAL) 0.9 10^3/uL (0.5-4.7); ABSOLUTE MONOCYTES # (MANUAL) 0.5 10^3/uL (0.1-1.4); BASOPHILS % (MANUAL) 1 % (0-2); EOSINOPHILS % (MANUAL) 2 % (0-6); LYMPHOCYTES % (MANUAL) 6 % (13-45); MONOCYTES % (MANUAL) 3 % (3-13); SEGMENTED NEUTROPHILS % (MAN) 88 % (42-78); TOTAL CELLS COUNTED 100
[2019-01-26 03:53] LABS: ANISOCYTOSIS 3+; OVALOCYTES 1+; SCHISTOCYTES 1+; TARGET CELLS 1+
[2019-01-26 03:54] LABS: HYPOCHROMASIA 2+; PLATELET COMMENT ADEQUATE
[2019-01-26] MEDS ORDERED: ONDANSETRON HCL INJ/PF 4 MG/2 ML SDV IV ONE (03:55)
[2019-01-26] MEDS ORDERED: KETOROLAC TROMETHAMINE INJ/PF 30 MG/1 ML SDV IV ONE (03:55)
[2019-01-26] MEDS ORDERED: NORMAL SALINE 1000 ML 1,000 ML IV ONE (03:55)
[2019-01-26 03:56] LABS: APPEARANCE,URINE CLOUDY; BILIRUBIN,URINE NEGATIVE (NEGATIVE); COLOR,URINE YELLOW; GLUCOSE, URINE NEGATIVE (NEGATIVE); KETONES,URINE NEGATIVE (NEGATIVE); LEUKOCYTE ESTERASE,URINE LARGE (NEGATIVE); NITRITE,URINE NEGATIVE (NEGATIVE); PROTEIN,URINE 30 mg/dL (NEGATIVE); URINE SPECIFIC GRAVITY 1.018; UROBILINOGEN,URINE NEGATIVE mg/dL (<2.0)
[2019-01-26 04:15] LABS: ADD MANUAL MICROSCOPIC YES; BACTERIA,URINE 2+ /HPF; HYALINE CASTS, URINE 0-1 /LPF
[2019-01-26] MEDS ORDERED: CEFTRIAXONE 1 GM/D5W RTU 1 GM/50 ML RTUPB IV ONE (04:18)
--- NOTE | 2019-01-26 05:42 | RADIOLOGY REPORT (SQ) ---
EXAM DESCRIPTION: CT ABDOMEN PELVIS WITHOUT IV CONTRAST COMPLETED DATE/TME: 01/26/2019 03:51 CLINICAL HISTORY: 38 years, Female, left flank pain COMPARISON: 08/30/2013 TECHNIQUE: Axial CT images of the abdomen and pelvis were obtained without contrast. Sagittal and coronal reformats were performed. Images stored on PACS. All CT scanners at this facility use dose modulation, iterative reconstruction, and/or weight based dosing when appropriate to reduce radiation dose to as low as reasonably achievable (ALARA). [facility]: Dose Right [facility]: CareDose [facility]: Dose Right [facility]: Teradose 4D [facility]: eMazeMe LIMITATIONS: None. FINDINGS: The lung bases are clear. The liver, gallbladder, pancreas, spleen, and adrenal glands are unremarkable. There is no evidence of urolithiasis or hydronephrosis bilaterally. There is no intraperitoneal free air or fluid. There is no lymphadenopathy. The abdominal aorta is normal in caliber. An IVC filter is in place. The stomach and small bowel and appendix appear unremarkable. There is a moderate amount of stool within the colon. The uterus, adnexa, and urinary bladder are unremarkable. There are postsurgical changes to both femurs. IMPRESSION: No acute findings. No evidence of urolithiasis or hydronephrosis. TECHNICAL DOCUMENTATION: Quality ID # 436: Final reports with documentation of one or more dose reduction techniques (e.g., Automated exposure control, adjustment of the mA and/or kV according to patient size, use of iterative reconstruction technique) copyright 2011 [email or web address]- All Rights Reserved
[2019-01-26 06:42] VITALS: BP 126/72
[2019-01-26 10:59] LABS: PATH REVIEW PATHOLOGIST REVIEWED
== END 2019-01-26 06:55 | disposition home or self-care (01) ==
LOC: ER 01:03
DX: N12 Tubulo-interstitial nephritis, not specified as acute or chronic (principal); D72.829 Elevated white blood cell count, unspecified; R10.2 Pelvic and perineal pain; R10.9 Unspecified abdominal pain; R11.0 Nausea; R35.0 Frequency of micturition; R39.11 Hesitancy of micturition; I10 Essential (primary) hypertension; Z87.891 Personal history of nicotine dependence; Z87.42 Personal history of other diseases of the female genital tract; Z98.51 Tubal ligation status
CPT/HCPCS: 36415; 83690; 85025; 81025; 80053; 81001; 74176; J1885; J2405; J7030; J0696; 96361; 96365; 96375; 99284

== ENCOUNTER 2019-06-18 17:22 | Emergency (ER) | payer MEDICARE, MEDICAID ==
--- NOTE | 2019-06-18 18:42 | ER Document Report ---
ED Medical Screen (RME) - General Chief Complaint: Leg Pain Stated Complaint: RIGHT LEG/THIGH PAIN Time Seen by Provider: 06/18/19 18:31 Notes: HPI: 38-year-old morbidly obese female with clotting disorder history and IVC filter presenting for evaluation of tender erythematous area over the anterior right thigh over the last 2 to 3 days. Patient is on Lovenox daily but was concerned about possible clot. No chest pain shortness of breath no fever I have greeted and performed a rapid initial assessment of this patient. A comprehensive ED assessment and evaluation of the patient, analysis of test results and completion of the medical decision making process will be conducted by additional ED providers PHYSICAL EXAMINATION: GENERAL: Well-appearing, well-nourished and in no acute distress. HEAD: Atraumatic, normocephalic. EYES: sclera anicteric, conjunctiva are normal. ENT: Moist mucous membranes. NECK: Normal range of motion LUNGS: Normal work of breathing HEART: 2+ radial pulses bilaterally ABD: limited by positioning for exam in triage. EXTREMITIES: no pitting or edema. No cyanosis. NEUROLOGICAL: No focal neurological deficits. Moves all extremities spontaneously and on command. PSYCH: Normal mood, normal affect. SKIN: Warm, Dry, normal turgor, there is erythema linearly in a zigzag pattern over the anterior and medial right thigh. Mild tenderness on palpation with some palpable cording of the veins noted TRAVEL OUTSIDE OF THE [place] IN LAST 30 DAYS: No - Related Data Allergies/Adverse Reactions: No Known Allergies Allergy (Verified 01/26/19 02:42) Home Medications: Eliquis Past Medical History - Past Medical History Cardiac Medical History: Reports: Hx DVT, Hx Hypertension, Hx Pulmonary Embolism Neurological Medical History: Reports: Hx Seizures Renal/ Medical History: Denies: Hx Peritoneal Dialysis Past Surgical History: Reports: Hx Section - x2, Hx Orthopedic Surgery - left wrist and bilateral hips, Hx Tubal Ligation - Immunizations Hx Diphtheria, Pertussis, Tetanus Vaccination: Yes Physical Exam - Vital signs Vitals: Temp Pulse BP Pulse Ox 98.0 F 85 118/88 H 97 06/18/19 18:24 06/18/19 18:24 06/18/19 18:24 06/18/19 18:24 Course - Vital Signs Vital signs: Temp Pulse Resp BP Pulse Ox 98.0 F 85 118/88 H 97 06/18/19 18:24 06/18/19 18:24 06/18/19 18:24 06/18/19 18:24
--- NOTE | 2019-06-18 21:43 | VASCULAR PRELIM REPORT ---
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 Less prominent than prior study.
--- NOTE | 2019-06-18 23:50 | ER Document Report ---
HPI - HPI Time Seen by Provider: 06/18/19 18:31 Pain Level: 3 Context: Patient is a 38-year-old female that comes emergency department for chief complaint of concerns about her right leg. She states that she has a history of blood clots, IVC filter, she was on Coumadin initially, switched to Eliquis because she continued a clot, switched to Lovenox now because she continued to clot. She states currently she is on Lovenox but she started getting an area over the right upper proximal anterior thigh which is warm, mildly tender, and slightly firm along the vein. She denies fever/chills, significant pain to the area, she can ambulate without difficulty. She does follow with local hematology. - REPRODUCTIVE Reproductive: DENIES: : Past Medical History - General Information source: Patient - Social History Smoking Status: Never Smoker Frequency of alcohol use: None Drug Abuse: None Lives with: Family Family History: Reviewed & Not Pertinent Patient has suicidal ideation: No Patient has homicidal ideation: No - Past Medical History Cardiac Medical History: Reports: Hx DVT, Hx Hypertension, Hx Pulmonary Embolism Neurological Medical History: Reports: Hx Seizures Renal/ Medical History: Denies: Hx Peritoneal Dialysis Past Surgical History: Reports: Hx Section - x2, Hx Orthopedic Surgery - left wrist and bilateral hips, Hx Tubal Ligation - Immunizations Hx Diphtheria, Pertussis, Tetanus Vaccination: Yes Vertical Provider Document - CONSTITUTIONAL General Appearance: WD/WN, No Apparent Distress, Obese - INFECTION CONTROL TRAVEL OUTSIDE OF THE [place] IN LAST 30 DAYS: No - HEENT HEENT: Atraumatic, Normocephalic - NECK Neck: Normal Inspection - RESPIRATORY Respiratory: Breath Sounds Normal, No Respiratory Distress - CARDIOVASCULAR Cardiovascular: Regular Rate, Regular Rhythm - GI/ABDOMEN Gastrointestinal: Abdomen Soft, Abdomen Non-Tender. negative: Abdomen Tender - BACK Back: Normal Inspection - MUSCULOSKELETAL/EXTREMETIES Musculoskeletal/Extremeties: SHOAIB, FROM. negative: Edema - There is a palpable cord which appears to be phlebitis over the right anterior proximal thigh, there is minimal extra heat to the area, there is no abnormal erythema, no notable tenderness, no severe warmth. No streaking away from the area. Normal lower extremity exam otherwise with normal distal pulses and sensation. No noted edema. - NEURO Level of Consciousness: Awake, Alert, Appropriate Motor/Sensory: No Motor Deficit, No Sensory Deficit - DERM Integumentary: Warm, Dry, No Rash Course - Re-evaluation Re-evalutation: There is a palpable cord over the right anterior proximal thigh which appears to be a superficial vein. The area is not notably erythematous, there is no abnormal heat to the area, the area is only minimally tender. Appears to be phlebitis which is superficial. I do not see cellulitis or infection. Patient does not have a fever. Ultrasound does show deep venous thrombosis in the femoral vein but this is not new and it is improved from prior. Patient has no other complaints and is well-appearing otherwise. Discussed with patient. Patient is already on Lovenox, she is taking intermittent ibuprofen and states she will take this for it, patient will monitor the area for any signs of worsening symptoms including infection, patient will follow closely with her primary provider. 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 Patient states appreciation and agreement. Stable at time of discharge. - Vital Signs Vital signs: Temp Pulse Resp BP Pulse Ox 98.0 F 85 118/88 H 97 06/18/19 18:24 06/18/19 18:24 06/18/19 18:24 06/18/19 18:24 Discharge - Discharge Clinical Impression: Right leg pain Condition: Stable Disposition: HOME, SELF-CARE Additional Instructions: Your evaluation shows superficial phlebitis, inflammation of the superficial vein. This does not appear to be infected. Your Doppler shows a clot in your leg but this appears to be smaller than before. You can continue your current medications as discussed, you can apply warm compress to the vein over your leg, this should simply resolve with time. Follow-up close with your provider. Return if you worsen including severe worsening swelling of the leg, developing redness or spreading redness, fever, or any other concerning symptoms. Referrals: ALISHA JAIN PA-C [Primary Care Provider] - Follow up as needed
[2019-06-19 00:05] VITALS: BP 112/95
--- NOTE | 2019-06-19 08:08 | XCELERA REPORT ---
[address] [address] Lower Extremity Venous Evaluation Procedure: Color flow and duplex imaging of the veins of the right lower extremity as well as the left Common Femoral vein. Right Sided Venous Evaluation Abnormal vessel filling, reduced compression some Colour flow , enlarged veins with partly echogenic content, in Common Femoral and Femoral veins. Left Sided Venous Evaluation The left common femoral vein is fully compressible. Spontaneous and phasic flow is present in the left common femoral vein. Interpretation Summary Chronic, partly recanalized Deep venous thrombosis in the right lower extremity. Name: KATIE DE Age: 38 yrs Gender: Female : 1980 Patient Status: Preadmit Patient Location: ER Study Date: 06/18/2019 08:34 PM Reason For Study: right leg DVT vs superficial thrombophlebitis Ordering Physician: JAMIE ADAN Performed By: Angeli Wood : JAMIE ADAN > Keith Hilliard
== END 2019-06-19 00:16 | disposition home or self-care (01) ==
LOC: ER 17:22
DX: I82.511 Chronic embolism and thrombosis of right femoral vein (principal); M79.604 Pain in right leg; I10 Essential (primary) hypertension; Z86.718 Personal history of other venous thrombosis and embolism; Z86.711 Personal history of pulmonary embolism; Z98.51 Tubal ligation status; Z79.01 Long term (current) use of anticoagulants
CPT/HCPCS: 93971; 99283

== ENCOUNTER 2020-01-13 22:33 | Emergency (ER) | payer MEDICARE, MEDICAID ==
--- NOTE | 2020-01-13 23:53 | ER Document Report ---
ED Medical Screen (RME) - General Chief Complaint: General Weakness Stated Complaint: WEAKNESS Time Seen by Provider: 01/13/20 23:47 Primary Care Provider: ALISHA JAIN PA-C [Primary Care Provider] - Follow up as needed Mode of Arrival: Wheelchair Information source: Patient Notes: 39-year-old female presented to ED for complaint of tiredness fatigue druggie th e last several days. She states this started on Tuesday. She states she has a history of anemia seizures primary lymphedema, CHF, blood clotting disorder APS that she is on Lovenox for. She states she does not smoke or use any illicit drugs she does occasionally drink. She states she is disabled and lives with her children. Patient is alert oriented respirations regular nonlabored answer no questions at this time. She is morbidly obese at 193 kg. I have greeted and performed a rapid initial assessment of this patient. A comprehensive ED assessment and evaluation of the patient, analysis of test results and completion of medical decision making process will be conducted by an additional ED providers. TRAVEL OUTSIDE OF THE [place] IN LAST 30 DAYS: No - Related Data Allergies/Adverse Reactions: No Known Allergies Allergy (Verified 01/26/19 02:42) Past Medical History - Past Medical History Cardiac Medical History: Reports: Hx DVT, Hx Hypertension, Hx Pulmonary Embolism Neurological Medical History: Reports: Hx Seizures Renal/ Medical History: Denies: Hx Peritoneal Dialysis Past Surgical History: Reports: Hx Section - x2, Hx Orthopedic Surgery - left wrist and bilateral hips, Hx Tubal Ligation - Immunizations Hx Diphtheria, Pertussis, Tetanus Vaccination: Yes Physical Exam - Vital signs Vitals: Temp Pulse Resp BP Pulse Ox 97.9 F 90 20 107/90 H 93 01/13/20 22:42 01/13/20 22:42 01/13/20 22:42 01/13/20 22:42 01/13/20 22:42 Course - Vital Signs Vital signs: Temp Pulse Resp BP Pulse Ox 97.9 F 90 20 107/90 H 93 01/13/20 22:42 01/13/20 22:42 01/13/20 22:42 01/13/20 22:42 01/13/20 22:42 Doctor's Discharge - Discharge Referrals: ALISHA JAIN PA-C [Primary Care Provider] - Follow up as needed
[2020-01-14 01:53] LABS: APPEARANCE,URINE SLIGHTLY-CLOUDY; BILIRUBIN,URINE NEGATIVE (NEGATIVE); COLOR,URINE YELLOW; GLUCOSE, URINE NEGATIVE (NEGATIVE); KETONES,URINE NEGATIVE (NEGATIVE); LEUKOCYTE ESTERASE,URINE MODERATE (NEGATIVE); NITRITE,URINE NEGATIVE (NEGATIVE); PROTEIN,URINE 30 mg/dL (NEGATIVE); URINE SPECIFIC GRAVITY 1.018; UROBILINOGEN,URINE NEGATIVE mg/dL (<2.0)
[2020-01-14 04:09] LABS: ABSOLUTE BASOPHILS # (AUTO) 0.1 10^3/uL (0.0-0.2); ABSOLUTE EOSINOPHILS # (AUTO) 0.5 10^3/uL (0.0-0.6); ABSOLUTE LYMPHOCYTES (AUTO) 1.2 10^3/uL (0.5-4.7); ABSOLUTE MONOCYTES (AUTO) 0.5 10^3/uL (0.1-1.4); ABSOLUTE NEUT (AUTO) 9.8 10^3/uL (1.7-8.2); BASOPHILS % (AUTO) 0.4 % (0-2); EOSINOPHILS % (AUTO) 4.5 % (0-6); HEMATOCRIT 38.6 % (36.0-47.0); HEMOGLOBIN 12.8 g/dL (12.0-15.5); LYMPHOCYTES % (AUTO) 10.2 % (13-45); MEAN CORPUSCULAR HEMOGLOBIN 27.4 pg (27.0-33.4); MEAN CORPUSCULAR HGB CONC 33.2 g/dL (32.0-36.0); MEAN CORPUSCULAR VOLUME 83 fl (80-97); PLATELET COUNT 263 10^3/uL (150-450); RED BLOOD COUNT 4.67 10^6/uL (3.72-5.28); RED CELL DISTRIBUTION WIDTH 21.9 % (11.5-14.0); SEGMENTED NEUTROPHILS % (AUTO) 80.9 % (42-78); TOTAL CELLS COUNTED % (AUTO) 100 %; WHITE BLOOD COUNT 12.2 10^3/uL (4.0-10.5)
[2020-01-14 04:16] LABS: INTERNATIONAL RATION (INR) 1.11; PROTHROMBIN TIME 14.6 SEC (11.4-15.4)
[2020-01-14 04:17] LABS: PARTIAL THROMBOPLASTIN TIME 34.1 SEC (23.5-35.8)
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
[2020-01-14 04:31] LABS: ALBUMIN 4.1 g/dL (3.5-5.0); ALKALINE PHOSPHATASE 79 U/L (38-126); ANION GAP 9 (5-19); ASPARTATE AMINO TRANSFERASE 26 U/L (14-36); BILIRUBIN,DIRECT 0.2 mg/dL (0.0-0.4); BILIRUBIN,TOTAL 0.8 mg/dL (0.2-1.3); BLOOD UREA NITROGEN 11 mg/dL (7-20); CALCIUM 8.7 mg/dL (8.4-10.2); CARBON DIOXIDE 36 mmol/L (22-30); CHLORIDE 94 mmol/L (98-107); GLUCOSE 116 mg/dL (75-110); TOTAL PROTEIN 7.9 g/dL (6.3-8.2)
[2020-01-14] MEDS ORDERED: CEFTRIAXONE 1 GM/D5W RTU 1 GM/50 ML RTUPB IV ONE (04:34)
[2020-01-14 04:48] LABS: POTASSIUM 2.6 mmol/L (3.6-5.0)
--- NOTE | 2020-01-14 05:26 | RADIOLOGY REPORT (SQ) ---
CLINICAL HISTORY: eval consolidation COMPARISON: None. TECHNIQUE: XR CHEST 2 VIEWS 01/14/2020 4:34 AM CDT FINDINGS: The heart is mildly enlarged. Lungs are clear without consolidation, atelectasis, mass or edema. There is no pleural effusion. There is no pneumothorax. There are no acute osseous findings. IMPRESSION: Clear lungs.
[2020-01-14] MEDS ORDERED: POTASSI CL 40 MEQ/NS 1L 1,000 ML IV PRN (05:44)
[2020-01-14] MEDS ORDERED: POTASSIUM CHLORIDE 20 MEQ PACKET PO ONE (05:46)
--- NOTE | 2020-01-14 07:12 | EKG REPORT ---
SEVERITY:- ABNORMAL ECG - SINUS RHYTHM BORDERLINE LEFT AXIS DEVIATION ABNORMAL T, CONSIDER ISCHEMIA, ANTERIOR LEADS : Confirmed by: Daniel Johnston MD 14-Jan-2020 07:11:54
[2020-01-14 08:36] VITALS: BP 107/70
== END 2020-01-14 09:29 | disposition home or self-care (01) ==
LOC: ER 22:33
DX: E87.6 Hypokalemia (principal); R53.83 Other fatigue; G89.29 Other chronic pain; M25.552 Pain in left hip; M25.551 Pain in right hip; I10 Essential (primary) hypertension; Z86.718 Personal history of other venous thrombosis and embolism; Z98.51 Tubal ligation status
CPT/HCPCS: 93005; 99285; 96361; 96365; 36415; 87086; 83690; 85025; 85610; 85730; 80053; 81001; 71046; 93010; J0696; J3480; J3490

== ENCOUNTER 2020-01-22 19:07 | Emergency (ER) | payer MEDICARE, MEDICAID ==
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
[2020-01-22 20:03] LABS: ABSOLUTE BASOPHILS # (AUTO) 0.1 10^3/uL (0.0-0.2); ABSOLUTE EOSINOPHILS # (AUTO) 0.5 10^3/uL (0.0-0.6); ABSOLUTE MONOCYTES (AUTO) 0.9 10^3/uL (0.1-1.4); ABSOLUTE NEUT (AUTO) 9.3 10^3/uL (1.7-8.2); BASOPHILS % (AUTO) 0.6 % (0-2); EOSINOPHILS % (AUTO) 3.9 % (0-6); HEMATOCRIT 45.1 % (36.0-47.0); HEMOGLOBIN 15.7 g/dL (12.0-15.5); LYMPHOCYTES % (AUTO) 8.9 % (13-45); MEAN CORPUSCULAR HEMOGLOBIN 28.7 pg (27.0-33.4); MEAN CORPUSCULAR HGB CONC 34.9 g/dL (32.0-36.0); MEAN CORPUSCULAR VOLUME 82 fl (80-97); MONOCYTES % (AUTO) 7.7 % (3-13); PLATELET COUNT 357 10^3/uL (150-450); RED BLOOD COUNT 5.48 10^6/uL (3.72-5.28); RED CELL DISTRIBUTION WIDTH 21.5 % (11.5-14.0); SEGMENTED NEUTROPHILS % (AUTO) 78.9 % (42-78); TOTAL CELLS COUNTED % (AUTO) 100 %; WHITE BLOOD COUNT 11.8 10^3/uL (4.0-10.5)
[2020-01-22 20:32] LABS: ALBUMIN 4.9 g/dL (3.5-5.0); ALKALINE PHOSPHATASE 78 U/L (38-126); ANION GAP 14 (5-19); ASPARTATE AMINO TRANSFERASE 21 U/L (14-36); BILIRUBIN,DIRECT 0.3 mg/dL (0.0-0.4); BILIRUBIN,TOTAL 0.7 mg/dL (0.2-1.3); BLOOD UREA NITROGEN 21 mg/dL (7-20); CALCIUM 9.8 mg/dL (8.4-10.2); CARBON DIOXIDE 33 mmol/L (22-30); CHLORIDE 91 mmol/L (98-107); GLUCOSE 113 mg/dL (75-110); PHOSPHORUS 3.5 mg/dL (2.5-4.5); POTASSIUM 3.4 mmol/L (3.6-5.0); TOTAL PROTEIN 8.9 g/dL (6.3-8.2)
[2020-01-22 21:04] LABS: APPEARANCE,URINE CLOUDY; BILIRUBIN,URINE NEGATIVE (NEGATIVE); COLOR,URINE YELLOW; GLUCOSE, URINE NEGATIVE (NEGATIVE); KETONES,URINE NEGATIVE (NEGATIVE); LEUKOCYTE ESTERASE,URINE MODERATE (NEGATIVE); NITRITE,URINE NEGATIVE (NEGATIVE); PROTEIN,URINE NEGATIVE (NEGATIVE); URINE SPECIFIC GRAVITY 1.014; UROBILINOGEN,URINE NEGATIVE mg/dL (<2.0)
[2020-01-22] MEDS ORDERED: POTASSIUM CHLORIDE 10 MEQ TABLET.ER PO ONE (21:48)
[2020-01-23 00:41] LABS: NT PRO BNP 37 pg/mL (<125)
[2020-01-23 00:42] LABS: TROPONIN I < 0.012 ng/mL
--- NOTE | 2020-01-23 00:52 | RADIOLOGY REPORT (SQ) ---
XR CHEST 1 VIEW HISTORY: General weakness. Upper respiratory infection symptoms. COMPARISON: 01/14/2020 FINDINGS: The heart size is mildly enlarged. There is no pulmonary vascular congestion. No consolidation, pleural effusion, or pneumothorax is seen. No acute bony findings are seen. IMPRESSION: No evidence of acute cardiopulmonary disease.
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
[2020-01-23 02:29] VITALS: BP 121/74
--- NOTE | 2020-01-23 09:35 | EKG REPORT ---
SEVERITY:- ABNORMAL ECG - SINUS RHYTHM LEFT ATRIAL ABNORMALITY PROBABLE LEFT VENTRICULAR HYPERTROPHY BORDERLINE PROLONGED QT INTERVAL : Confirmed by: Jayden Galindo MD 23-Jan-2020 09:33:27
== END 2020-01-23 02:36 | disposition home or self-care (01) ==
LOC: ER 19:07
DX: E87.6 Hypokalemia (principal); E86.0 Dehydration; L97.921 Non-pressure chronic ulcer of unspecified part of left lower leg limited to breakdown of skin; R53.83 Other fatigue; R31.9 Hematuria, unspecified; M79.10 Myalgia, unspecified site; R25.2 Cramp and spasm; R09.81 Nasal congestion; R68.83 Chills (without fever); G47.33 Obstructive sleep apnea (adult) (pediatric); Z91.19 Patient's noncompliance with other medical treatment and regimen; I89.0 Lymphedema, not elsewhere classified; I10 Essential (primary) hypertension; D68.61 Antiphospholipid syndrome; Z79.01 Long term (current) use of anticoagulants; Z86.19 Personal history of other infectious and parasitic diseases; Z87.891 Personal history of nicotine dependence; Z20.828 Contact with and (suspected) exposure to other viral communicable diseases
CPT/HCPCS: 93005; 99285; 36415; 87086; 82550; 83735; 84100; 85025; 81025; 80053; 81001; 84484; 83880; 71045; 93010; U0003; A9270; C9803; 87635

== ENCOUNTER 2020-02-24 12:17 | Emergency (ER) | payer MEDICARE, MEDICAID ==
[2020-02-24 12:30] VITALS: BP 108/82
[2020-02-24] MEDS ORDERED: SILVER SULFADIAZINE 1% CREAM 25 GM TP ONE (12:56)
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
== END 2020-02-24 13:02 | disposition home or self-care (01) ==
LOC: ER 12:17
DX: T23.191A Burn of first degree of multiple sites of right wrist and hand, initial encounter (principal); T24.101A Burn of first degree of unspecified site of right lower limb, except ankle and foot, initial encounter; T24.132A Burn of first degree of left lower leg, initial encounter; E66.01 Morbid (severe) obesity due to excess calories; I89.0 Lymphedema, not elsewhere classified; X10.2XXA Contact with fats and cooking oils, initial encounter; Z79.899 Other long term (current) drug therapy; I11.0 Hypertensive heart disease with heart failure; I50.9 Heart failure, unspecified
CPT/HCPCS: 99283; A9270

== ENCOUNTER 2020-06-13 17:00 | Emergency (ER) | payer MEDICARE, MEDICAID ==
--- NOTE | 2020-06-13 17:31 | ER Document Report ---
ED Medical Screen (RME) - General Chief Complaint: Shortness Of Breath Stated Complaint: SHORTNESS OF BREATHE Time Seen by Provider: 06/13/20 17:23 Primary Care Provider: ALISHA JAIN PA-C [Primary Care Provider] - Follow up as needed Notes: Patient presents with cough for the past week with shortness of breath and fatigue. Patient reports a history of CHF and reports a 6 pound weight gain over the past 3 days. Patient denies any fever. Patient states she did have Covid in August of last year. Patient does have an underlying history of seizures, lymphedema, CHF and antiphospholipid syndrome I have greeted and performed a rapid initial assessment of this patient. A comprehensive ED assessment and evaluation of the patient, analysis of test results and completion of the medical decision making process will be conducted by additional ED providers. TRAVEL OUTSIDE OF THE [place] IN LAST 30 DAYS: No - Related Data Allergies/Adverse Reactions: No Known Allergies Allergy (Verified 02/24/20 12:51) Past Medical History - Social History Chew tobacco use (# tins/day): No Frequency of alcohol use: None Drug Abuse: None - Past Medical History Cardiac Medical History: Reports: Hx Congestive Heart Failure, Hx DVT, Hx Hypertension, Hx Pulmonary Embolism Neurological Medical History: Reports: Hx Seizures Renal/ Medical History: Denies: Hx Peritoneal Dialysis Past Surgical History: Reports: Hx Section - x2, Hx Orthopedic Surgery - left wrist and bilateral hips, Hx Tubal Ligation - Immunizations Hx Diphtheria, Pertussis, Tetanus Vaccination: Yes Physical Exam - Vital signs Vitals: Temp Pulse Resp BP Pulse Ox 97.8 F 81 20 113/82 94 06/13/20 17:07 06/13/20 17:07 06/13/20 17:07 06/13/20 17:07 06/13/20 17:07 - Respiratory Respiratory status: No respiratory distress. No: Labored, Tachypnea Breath sounds: Nonproductive cough Course - Vital Signs Vital signs: Temp Pulse Resp BP Pulse Ox 97.8 F 81 20 113/82 94 06/13/20 17:07 06/13/20 17:07 06/13/20 17:07 06/13/20 17:07 06/13/20 17:07 Doctor's Discharge - Discharge Referrals: ALISHA JAIN PA-C [Primary Care Provider] - Follow up as needed
[2020-06-13 20:12] LABS: ABSOLUTE EOSINOPHILS # (AUTO) 0.9 10^3/uL (0.0-0.6); ABSOLUTE LYMPHOCYTES (AUTO) 1.1 10^3/uL (0.5-4.7); ABSOLUTE MONOCYTES (AUTO) 0.7 10^3/uL (0.1-1.4); ABSOLUTE NEUT (AUTO) 7.1 10^3/uL (1.7-8.2); BASOPHILS % (AUTO) 0.4 % (0-2); EOSINOPHILS % (AUTO) 9.3 % (0-6); HEMATOCRIT 39.2 % (36.0-47.0); HEMOGLOBIN 12.7 g/dL (12.0-15.5); LYMPHOCYTES % (AUTO) 11.5 % (13-45); MEAN CORPUSCULAR HEMOGLOBIN 27.7 pg (27.0-33.4); MEAN CORPUSCULAR HGB CONC 32.4 g/dL (32.0-36.0); MEAN CORPUSCULAR VOLUME 86 fl (80-97); MONOCYTES % (AUTO) 6.8 % (3-13); PLATELET COUNT 279 10^3/uL (150-450); RED BLOOD COUNT 4.58 10^6/uL (3.72-5.28); TOTAL CELLS COUNTED % (AUTO) 100 %; WHITE BLOOD COUNT 9.9 10^3/uL (4.0-10.5)
[2020-06-13 20:29] LABS: ALBUMIN 3.6 g/dL (3.5-5.0); ALKALINE PHOSPHATASE 75 U/L (38-126); ASPARTATE AMINO TRANSFERASE 16 U/L (14-36); BILIRUBIN,DIRECT 0.3 mg/dL (0.0-0.4); BILIRUBIN,TOTAL 0.4 mg/dL (0.2-1.3); BLOOD UREA NITROGEN 14 mg/dL (7-20); CALCIUM 8.8 mg/dL (8.4-10.2); CARBON DIOXIDE 38 mmol/L (22-30); CHLORIDE 96 mmol/L (98-107); GLUCOSE 97 mg/dL (75-110); POTASSIUM 4.2 mmol/L (3.6-5.0); TOTAL PROTEIN 7.5 g/dL (6.3-8.2)
[2020-06-13 20:31] LABS: ANION GAP 3 (5-19)
[2020-06-13 20:47] LABS: NT PRO BNP 47 pg/mL (<125)
--- NOTE | 2020-06-13 20:47 | RADIOLOGY REPORT (SQ) ---
EXAM DESCRIPTION: XR CHEST 1 VIEW COMPLETED DATE/TME: 06/13/2020 20:06 CLINICAL HISTORY: 39 years, Female, COUGH, SOB COMPARISON: Previous chest x-rays and CT chest cannot be downloaded at this time. TECHNIQUE: Upright portable chest x-ray FINDINGS: Mild cardiomegaly. Mildly ectatic aorta. Elevation of the right hemidiaphragm. Right hilar nodularity. Significance not clear. Vascular? True nodule? Cannot currently compared to old studies. If clinically suspicious, consider CT chest.
[2020-06-13 20:55] LABS: TROPONIN I < 0.012 ng/mL
--- NOTE | 2020-06-13 21:22 | ER Document Report ---
ED General - General Chief Complaint: Shortness Of Breath Stated Complaint: SHORTNESS OF BREATHE Time Seen by Provider: 06/13/20 17:23 Primary Care Provider: ALISHA JAIN PA-C [Primary Care Provider] - Follow up as needed Mode of Arrival: Ambulatory Information source: Patient Notes: 39-year-old female patient with multiple comorbidities presents emergency depa rtment complaints of shortness of breath, cough, congestion, fatigue, chills and a 6 pound weight gain in the last week. She recently attended a wedding where 2 of the people in the waiting that she had close contact with ended up testing positive for Covid and were symptomatic at the time. TRAVEL OUTSIDE OF THE [place] IN LAST 30 DAYS: No - Related Data Allergies/Adverse Reactions: No Known Allergies Allergy (Verified 02/24/20 12:51) Past Medical History - General Information source: Patient - Social History Smoking Status: Never Smoker Chew tobacco use (# tins/day): No Frequency of alcohol use: None Drug Abuse: None Family History: Reviewed & Not Pertinent - Past Medical History Cardiac Medical History: Reports: Hx Congestive Heart Failure, Hx DVT, Hx Hypertension, Hx Pulmonary Embolism Neurological Medical History: Reports: Hx Seizures Renal/ Medical History: Denies: Hx Peritoneal Dialysis Past Surgical History: Reports: Hx Section - x2, Hx Orthopedic Surgery - left wrist and bilateral hips, Hx Tubal Ligation - Immunizations Hx Diphtheria, Pertussis, Tetanus Vaccination: Yes Review of Systems - Review of Systems Constitutional: See HPI Cardiovascular: See HPI Musculoskeletal: See HPI -: Yes All other systems reviewed and negative Physical Exam - Vital signs Vitals: Temp Pulse Resp BP Pulse Ox 97.8 F 81 20 113/82 94 06/13/20 17:07 06/13/20 17:07 06/13/20 17:07 06/13/20 17:07 06/13/20 17:07 - Notes Notes: PHYSICAL EXAMINATION: GENERAL: Chronically ill-appearing morbidly obese female. HEAD: Atraumatic, normocephalic. EYES: Pupils equal round and reactive to light, extraocular movements intact, conjunctiva are normal. ENT: Nares patent, oropharynx clear without exudates. Moist mucous membranes. NECK: Normal range of motion, supple without lymphadenopathy LUNGS: Breath sounds clear to auscultation bilaterally and equal. No wheezes rales or rhonchi. HEART: Regular rate and rhythm without murmurs ABDOMEN: Soft, nontender, nondistended abdomen. No guarding, no rebound. No masses appreciated. Female : deferred Musculoskeletal: Normal range of motion, no pitting or edema. No cyanosis. NEUROLOGICAL: Cranial nerves grossly intact. Normal speech. Normal sensory, motor exams PSYCH: Normal mood, normal affect. SKIN: Warm, Dry, normal turgor, no rashes or lesions noted. Course - Re-evaluation Re-evalutation: Patient ambulated with a pulse ox and did not drop below 95% on room air. She will be discharged home with strict ED return precautions. The patient's emergency department workup and current diagnosis were explained to the patient and or family. Follow-up instructions were provided. Medications if prescribed were discussed. Instructions for when to return to the emergency department including specific worrisome symptoms were discussed with the patient and/or family. - Vital Signs Vital signs: Temp Pulse Resp BP Pulse Ox 98.4 F 84 20 123/78 98 06/13/20 23:30 06/13/20 23:30 06/13/20 23:30 06/13/20 23:30 06/13/20 23:30 - Laboratory Results Result Diagrams: 06/13/20 20:00 06/13/20 20:00 Laboratory Results Interpreted: 06/13/20 06/13/20 20:00 20:00 RDW 16.0 H Lymph % (Auto) 11.5 L Eos % (Auto) 9.3 H Absolute Eos (auto) 0.9 H Sodium 136.6 L Chloride 96 L Carbon Dioxide 38 H Anion Gap 3 L Critical Laboratory Results Reviewed: No Critical Results - Radiology Results Critical Radiology Results Reviewed: No Critical Results - EKG Interpretation by [facility] EKG shows normal: Sinus rhythm - Rate 67, normal axis, normal intervals, no ST segment elevations or depressions to suggest ischemia. Discharge - Discharge Clinical Impression: Encounter for laboratory testing for COVID-19 virus, Shortness of breath Condition: Stable Disposition: HOME, SELF-CARE Additional Instructions: Please continue all home medications as prescribed by your primary care provider. Please have a low threshold for returning to the emergency de partment. Your Covid test is pending, someone will contact you with these results, please self quarantine until you have received these results and then follow the guidance of the health department if they are positive. Referrals: ALISHA JAIN PA-C [Primary Care Provider] - Follow up as needed
[2020-06-13 23:47] VITALS: BP 123/78
--- NOTE | 2020-06-14 08:16 | EKG REPORT ---
SEVERITY:- BORDERLINE ECG - SINUS RHYTHM PROBABLE LEFT ATRIAL ABNORMALITY BORDERLINE PROLONGED QT INTERVAL : Confirmed by: Jayden Galindo MD 14-Jun-2020 08:15:46
== END 2020-06-13 23:30 | disposition home or self-care (01) ==
LOC: ER 17:00
DX: Z20.822 Contact with and (suspected) exposure to COVID-19 (principal); R06.02 Shortness of breath; R53.83 Other fatigue; I11.0 Hypertensive heart disease with heart failure; I50.9 Heart failure, unspecified; Z86.16 Personal history of COVID-19; E66.01 Morbid (severe) obesity due to excess calories
CPT/HCPCS: 93005; 99285; 36415; 84703; 85025; 80053; 84484; 83880; 71045; 93010; U0003; C9803; 87635